=== PATIENT | male | born 1990 | race American Indian/Alaskan Native ===

== ENCOUNTER 2019-10-06 13:59 | Emergency (ER) | payer OTHER ==
[2019-10-06] MEDS ORDERED: 50% Dextrose in Water 50 ML Syringe IV ONE (14:00)
[2019-10-06] MEDS ORDERED: EPINEPHrine 1:10,000 1 MG/10 ML Syringe IV ONE (14:00)
[2019-10-06] MEDS ORDERED: Sodium Bicarbonate 8.4% 50 MEQ/50 ML SDV IV ONE (14:00)
--- NOTE | 2019-10-06 14:00 | EDM.PDOC ---
ED HPI GENERAL MEDICAL PROBLEM - General Chief Complaint: CPR in Progress Stated Complaint: AMBULANCE Time Seen by Provider: 10/06/19 13:59 Source of Information: Reports: EMS, Family (), RN, RN Notes Reviewed History Limitations: Reports: Other (CPR in progress) - History of Present Illness INITIAL COMMENTS - FREE TEXT/NARRATIVE: Pt arrived to ER from home by [facility] with CPR in progress with pt in asystole. Pt arrived cold to the touch, jaundiced, pulseless, with pupils fixed and dilated. Pt intubated without RSI with no gag or response, but with copious brownish blood from the throat. History from EMS and pt's reveals pt was a heavy daily alcohol drinker since age 13yrs. noticed that he turned yellow about 2 weeks ago. For the past several days he stayed in bed and would not eat. reports pt had 2 days of black tarry stools. urged him to go to the doctor, but he would not leave the house due to fear of catching COVID. Pt was found by EMS to have a blood glucose of 24, but was alert, talking, and confused. EMS gave Glucagon IM x1. EMS could not obtain IV access. About 5 mins. MEDICAL RECORDS FIELD TECHNICIAN at the ER EMS called "code blue", stating the pt became pulseless. EMS shocked for presumed V-fib x1, and gave Epinephrine 1mg IM. Pt remained in asystole through the ER coarse with CPR, intubation/ventilation, and EPI 1mg via IO x5mg total. Given the persistence of asystole, low body core temp. via rectal probe, and obvious GI bleed, resuscitation efforts were deemed futile and the decision to terminate efforts was made by me with time of : [id number]. is present and notified. Cork Wirer, Dr. Chavarria is notified. Onset: Unknown/Unsure Past Medical History Cardiovascular History: Reports: Hypertension Gastrointestinal History: Reports: Other (See Below) (elevated LFTs per Hx) Psychiatric History: Reports: Addiction (alcohol) Social & Family History - Family History Family Medical History: Unobtainable - Alcohol Use Alcohol Use History: Yes Alcohol Use Frequency: Daily (Heavy daily alcohol drinker since age 13yrs per .) - Living Situation & Occupation Living situation: Reports: , with Spouse Occupation: Employed ED ROS GENERAL - Review of Systems Review Of Systems: Unable To Obtain Reason Not Obtained: CPR in progress ED EXAM, CPR - Physical Exam Exam: See Below Text/Narrative:: See HPI Course - Orders/Labs/Meds Labs: Laboratory Tests 10/06/19 10/06/19 10/06/19 Range/Units 14:05 14:05 14:05 WBC 8.0 (5.0-10.0) 10^3/uL RBC 2.01 L (4.6-6.2) 10^6/uL Hgb 7.2 L (14.0-18.0) g/dL Hct 20.9 L* (40.0-54.0) % MCV 104.0 H (80-100) fL MCH 35.8 H (27.0-34.0) pg MCHC 34.4 (33.0-35.0) g/dL Plt Count 166 (150-450) 10^3/uL Neut % (Auto) 64.5 (42.2-75.2) % Lymph % (Auto) 18.7 L (20.5-50.1) % Reagan % (Auto) 16.4 H (2-8) % Eos % (Auto) 0.2 L (1.0-3.0) % Baso % (Auto) 0.2 (0.0-1.0) % Add Manual Diff Yes Neutrophils % (Manual) 57 (42-75) % Band Neutrophils % 2 % Lymphocytes % (Manual) 22 (20-50) % Monocytes % (Manual) 14 H (2-8) % Eosinophils % (Manual) 1 (1-3) % Metamyelocytes % 4 Target Cells 3+ marked PT 16.6 H (9.0-12.0) SEC INR 1.8 H (0.9-1.2) APTT 47.8 H (22.0-34.0) SEC Sodium 120 L (136-145) mmol/L Potassium 9.2 H* (3.5-5.1) mmol/L Chloride 83 L (98-107) mmol/L Carbon Dioxide 9 L (21-32) mmol/L Anion Gap 37.2 H (7-13) mEq/L BUN 137 H (7-18) mg/dL Creatinine 6.55 H* (0.70-1.30) mg/dL Est Cr Clr Drug Dosing TNP Estimated GFR (MDRD) 10 BUN/Creatinine Ratio 20.9 (No establ ref range) Glucose 11 L* (74-99) mg/dL Calcium 10.2 H (8.5-10.1) mg/dL Total Bilirubin 8.3 H (0.2-1.0) mg/dL AST 797 H (15-37) U/L ALT 354 H (16-63) U/L Alkaline Phosphatase 148 H (46-116) U/L Troponin I 0.019 (0.000-0.056) ng/mL Total Protein 6.3 L (6.4-8.2) g/dL Albumin 2.6 L (3.4-5.0) g/dL Globulin 3.7 Albumin/Globulin Ratio 0.70 Urine Opiates Screen (NEGATIVE) Ur Oxycodone Screen (NEGATIVE) Urine Methadone Screen (NEGATIVE) Ur Barbiturates Screen (NEGATIVE) U Tricyclic Antidepress (NEGATIVE) Ur Phencyclidine Scrn (NEGATIVE) Ur Amphetamine Screen (NEGATIVE) U Methamphetamines Scrn (NEGATIVE) Urine MDMA Screen (NEGATIVE) U Benzodiazepines Scrn (NEGATIVE) Urine Cocaine Screen (NEGATIVE) U Marijuana (THC) Screen (NEGATIVE) Ethyl Alcohol (0) mg/dL 10/06/19 10/06/19 Range/Units 14:05 14:50 WBC (5.0-10.0) 10^3/uL RBC (4.6-6.2) 10^6/uL Hgb (14.0-18.0) g/dL Hct (40.0-54.0) % MCV (80-100) fL MCH (27.0-34.0) pg MCHC (33.0-35.0) g/dL Plt Count (150-450) 10^3/uL Neut % (Auto) (42.2-75.2) % Lymph % (Auto) (20.5-50.1) % Reagan % (Auto) (2-8) % Eos % (Auto) (1.0-3.0) % Baso % (Auto) (0.0-1.0) % Add Manual Diff Neutrophils % (Manual) (42-75) % Band Neutrophils % % Lymphocytes % (Manual) (20-50) % Monocytes % (Manual) (2-8) % Eosinophils % (Manual) (1-3) % Metamyelocytes % Target Cells PT (9.0-12.0) SEC INR (0.9-1.2) APTT (22.0-34.0) SEC Sodium (136-145) mmol/L Potassium (3.5-5.1) mmol/L Chloride (98-107) mmol/L Carbon Dioxide (21-32) mmol/L Anion Gap (7-13) mEq/L BUN (7-18) mg/dL Creatinine (0.70-1.30) mg/dL Est Cr Clr Drug Dosing Estimated GFR (MDRD) BUN/Creatinine Ratio (No establ ref range) Glucose (74-99) mg/dL Calcium (8.5-10.1) mg/dL Total Bilirubin (0.2-1.0) mg/dL AST (15-37) U/L ALT (16-63) U/L Alkaline Phosphatase (46-116) U/L Troponin I (0.000-0.056) ng/mL Total Protein (6.4-8.2) g/dL Albumin (3.4-5.0) g/dL Globulin Albumin/Globulin Ratio Urine Opiates Screen Negative (NEGATIVE) Ur Oxycodone Screen Negative (NEGATIVE) Urine Methadone Screen Negative (NEGATIVE) Ur Barbiturates Screen Negative (NEGATIVE) U Tricyclic Antidepress Negative (NEGATIVE) Ur Phencyclidine Scrn Negative (NEGATIVE) Ur Amphetamine Screen Negative (NEGATIVE) U Methamphetamines Scrn Negative (NEGATIVE) Urine MDMA Screen Negative (NEGATIVE) U Benzodiazepines Scrn Negative (NEGATIVE) Urine Cocaine Screen Negative (NEGATIVE) U Marijuana (THC) Screen Negative (NEGATIVE) Ethyl Alcohol 132 (0) mg/dL Meds: Medications Discontinued Medications Generic Name Dose Route Start Last Admin Trade Name Freq PRN Reason Stop Dose Admin Dextrose/Water Confirm 10/06/19 14:12 Dextrose 50% In Water Administered 10/06/19 14:13 Dose 50 ml .ROUTE .STK-MED ONE Sodium Bicarbonate Confirm 10/06/19 14:14 Sodium Bicarbonate 8.4% Administered 10/06/19 14:15 Dose 50 meq .ROUTE .STK-MED ONE Departure - Departure Time of Disposition: 14:20 Disposition: 20 Preliminary Cause of *Q: Cardiac Arrest (secondary to GI hemorrhage) Clinical Impression: Cardiac arrest, Chronic alcohol abuse, Jaundice Gastrointestinal hemorrhage Qualifiers: GI bleed type/associated pathology: unspecified gastrointestinal hemorrhage type Qualified Code(s): K92.2 - Gastrointestinal hemorrhage, unspecified - Discharge Information *PRESCRIPTION DRUG MONITORING PROGRAM REVIEWED*: No *COPY OF PRESCRIPTION DRUG MONITORING REPORT IN PATIENT YANA: No Referrals: PCP,None [Primary Care Provider] - Forms: ED Department Discharge
[2019-10-06] MEDS ORDERED: 50% Dextrose in Water 50 ML Syringe ONE (14:12)
[2019-10-06] MEDS ORDERED: Sodium Bicarbonate 8.4% 50 MEQ/50 ML SDV ONE (14:14)
[2019-10-06 14:32] LABS: PTT,PARTIAL THROMBOPLSTIN TIME 47.8 SEC (22.0-34.0)
[2019-10-06 14:56] LABS: ANION GAP 37.2 mEq/L (7-13); CHLORIDE,CL 83 mmol/L (98-107); SODIUM,NA 120 mmol/L (136-145)
== END 2019-10-06 17:02 | disposition expired ==
LOC: DL.ED 13:59
DX: I46.9 Cardiac arrest, cause unspecified (principal); K92.2 Gastrointestinal hemorrhage, unspecified; R17 Unspecified jaundice; F10.20 Alcohol dependence, uncomplicated; Y90.6 Blood alcohol level of 120-199 mg/100 ml; I10 Essential (primary) hypertension
CPT/HCPCS: 31500; 36415; 80053; 80305; 80307; 84484; 85025; 85610; 85730; 92950; 99284; 99285; J0171